=== PATIENT | male | born 1930 | race Caucasian/White ===

== ENCOUNTER 2016-09-28 09:29 | Emergency (ER) | payer MEDICARE, BC ==
[2016-09-28 09:47] VITALS: RESP 18
[2016-09-28] MEDS ORDERED: RX INFO: IV CONTRAST WAS GIVEN 1 EACH MISC MISCELLANE PRN (10:04)
--- NOTE | 2016-09-28 10:13 | ED ---
Abdominal Pain HPI - General Chief Complaint: Abdominal Pain Stated Complaint: Abd Pain Time Seen by Provider: 09/28/16 09:38 Source: patient, family, EMS, RN notes reviewed Mode of arrival: EMS Limitations: no limitations, physical limitation - History of Present Illness Initial Comments: 86-year-old male presents emergency Department chief complaint lower abdominal pain. Patient is currently been treated for bladder cancer. Patient states she 's in between radiation and chemo. Patient had a plan 3 weeks off for treatment. Patient states that he is unable to cath himself anymore he states it feels obstructed. Patient states that he feels that he needs go the bathroom. Patient also had an increase abdominal pain prior to this. Patient has fever, chills. Patient states he has not had any recent imaging performed. Patient denies any rectal bleeding or rectal pain. Denies any melena or hematochezia. He does have some constipation. Patient denies chest pain, shortness breath. - Related Data Home Medications Medication Instructions Recorded Confirmed Ascorbic Acid [Vitamin C] 500 mg PO DAILY 03/17/16 09/28/16 Cranberry Extract [Cranberry] 500 mg PO DAILY 03/17/16 09/28/16 Cholecalciferol [Vitamin D3] 1,000 unit PO DAILY 09/28/16 09/28/16 Losartan Potassium [Cozaar] 100 mg PO DAILY 09/28/16 09/28/16 traMADol HCl [Ultram] 50 mg PO BID PRN 09/28/16 09/28/16 Previous Rx's Medication Instructions Recorded Ciprofloxacin HCl [Cipro] 500 mg PO Q12HR #20 tablet 09/28/16 Allergies Allergy/AdvReac Type Severity Reaction Status Date / Time No Known Allergies Allergy Verified 09/28/16 10:50 Review of Systems ROS Statement: Those systems with pertinent positive or pertinent negative responses have been documented in the HPI. ROS Other: All systems not noted in ROS Statement are negative. Past Medical History Past Medical History: Cancer, Hypertension History of Any Multi-Drug Resistant Organisms: None Reported Past Surgical History: Hernia Repair Additional Past Surgical History / Comment(s): ABD SX RE BLADDER Past Psychological History: No Psychological Hx Reported Smoking Status: Never smoker Past Alcohol Use History: None Reported Past Drug Use History: None Reported General Exam Limitations: physical limitation General appearance: alert, in no apparent distress Head exam: Present: atraumatic, normocephalic, normal inspection Respiratory exam: Present: normal lung sounds bilaterally. Absent: respiratory distress, wheezes, rales, rhonchi, stridor Cardiovascular Exam: Present: regular rate, normal rhythm, normal heart sounds. Absent: systolic murmur, diastolic murmur, rubs, gallop, clicks GI/Abdominal exam: Present: soft, distended, tenderness (Moderate lower abdominal tenderness), normal bowel sounds. Absent: guarding, rebound, rigid Back exam: Absent: CVA tenderness (R), CVA tenderness (L) Neurological exam: Present: alert Course Vital Signs 09/28/16 09:39 Temperature 98.6 F Pulse Rate 100 Respiratory 18 Rate Blood Pressure 163/83 O2 Sat by Pulse 95 Oximetry Medical Decision Making - Medical Decision Making A 6-year-old male present emergency department for lower abdominal pain urinary retention. Patient did have a Frances placed and and has complete relief of his symptoms. Patient CT shows progression of his cancer with bilateral hydronephrosis hydroureter. We did update urology Dr. Parish by Dr. Amato. Patient will be discharged home and follow up with urology. Patient's Frances will be left in placed. - Lab Data Result diagrams: 09/28/16 10:25 09/28/16 10:25 Lab Results 09/28/16 09/28/16 09/28/16 Range/Units 10:25 10:25 11:50 WBC 2.4 L (3.8-10.6) k/uL RBC 3.09 L (4.30-5.90) m/uL Hgb 9.1 L (13.0-17.5) gm/dL Hct 27.2 L (39.0-53.0) % MCV 88.3 (80.0-100.0) fL MCH 29.5 (25.0-35.0) pg MCHC 33.5 (31.0-37.0) g/dL RDW 20.5 H (11.5-15.5) % Plt Count 245 (150-450) k/uL Neutrophils % (Manual) 68.0 % Band Neutrophils % 4.0 % Lymphocytes % (Manual) 5.0 % Monocytes % (Manual) 23.0 % Neutrophils # (Manual) 1.7 (1.3-7.7) k/uL Lymphocytes # (Manual) 0.1 L (1.0-4.8) k/uL Monocytes # (Manual) 0.6 (0-1.0) k/uL Nucleated RBCs 0 (0-0) /100 WBC Manual Slide Review Performed Poikilocytosis (manual Present Anisocytosis Moderate Sodium 129 L (137-145) mmol/L Potassium 4.7 (3.5-5.1) mmol/L Chloride 95 L (98-107) mmol/L Carbon Dioxide 26 (22-30) mmol/L Anion Gap 8 mmol/L BUN 31 H (9-20) mg/dL Creatinine 1.00 (0.66-1.25) mg/dL Est GFR (MDRD) Af Amer >60 (>60 ml/min/1.73 sqM) Est GFR (MDRD) Non-Af >60 (>60 ml/min/1.73 sqM) Glucose 109 H (74-99) mg/dL Calcium 9.3 (8.4-10.2) mg/dL Total Bilirubin 0.6 (0.2-1.3) mg/dL AST 36 (17-59) U/L ALT 42 (21-72) U/L Alkaline Phosphatase 77 (38-126) U/L Total Protein 5.9 L (6.3-8.2) g/dL Albumin 3.0 L (3.5-5.0) g/dL Amylase 34 (30-110) U/L Lipase 31 (23-300) U/L Urine Color Yellow Urine Appearance Cloudy (Clear) Urine pH 6.5 (5.0-8.0) Ur Specific [place] 1.013 (1.001-1.035) Urine Protein 2+ H (Negative) Urine Glucose (UA) Negative (Negative) Urine Ketones Trace H (Negative) Urine Blood Small H (Negative) Urine Nitrite Negative (Negative) Urine Bilirubin Negative (Negative) Urine Urobilinogen <2.0 (<2.0) mg/dL Ur Leukocyte Esterase Large H (Negative) Urine RBC 18 H (0-5) /hpf Urine WBC 129 H (0-5) /hpf Urine WBC Clumps Few H (None) /hpf Urine Bacteria Occasional H (None) /hpf Disposition Clinical Impression: Urinary retention, Bladder cancer, Hydronephrosis Disposition: HOME SELF-CARE Condition: Stable Instructions: Urinary Retention in Men (ED) Additional Instructions: Please return to the Emergency Department if symptoms worsen or any other concerns. Prescriptions: Ciprofloxacin HCl [Cipro] 500 mg PO Q12HR #20 tablet Time of Disposition: 13:02
[2016-09-28 10:33] LABS: Anisocytosis Moderate; Aty Lym Flag Marked; CH 29.9; HCT 27.2 % (39.0-53.0); HDW 2.65; HGB 9.1 gm/dL (13.0-17.5); MCH 29.5 pg (25.0-35.0); MCHC 33.5 g/dL (31.0-37.0); MCV 88.3 fL (80.0-100.0); Mean Platelet Volume 7.9; RBC 3.09 m/uL (4.30-5.90); RDW 20.5 % (11.5-15.5); WBC 2.4 k/uL (3.8-10.6); WBC (Perox) 2.47
[2016-09-28] MEDS ORDERED: SODIUM CHLORIDE 0.9% 500 ML IV ONE (10:42)
[2016-09-28 10:55] LABS: ALT 42 U/L (21-72); AST 36 U/L (17-59); Alkaline Phosphatase 77 U/L (38-126); Amylase 34 U/L (30-110); Anion Gap 8 mmol/L; Blood Urea Nitrogen 31 mg/dL (9-20); Calcium 9.3 mg/dL (8.4-10.2); Carbon Dioxide 26 mmol/L (22-30); Chloride 95 mmol/L (98-107); Glucose 109 mg/dL (74-99); Non-African American GFR(MDRD) >60 (>60 ml/min/1.73 sqM); Potassium 4.7 mmol/L (3.5-5.1); Sodium 129 mmol/L (137-145); Total Bilirubin 0.6 mg/dL (0.2-1.3); Total Protein 5.9 g/dL (6.3-8.2)
[2016-09-28 11:40] LABS: Add Differential Manual Differential
[2016-09-28 11:45] LABS: Manual Review Performed; Nucleated Red Blood Cells 0 /100 WBC (0-0); Total Cells Counted 100
[2016-09-28 12:19] LABS: Appearance,Urine Cloudy (Clear); Bacteria,Urine Occasional /hpf; Bilirubin,Urine Negative (Negative); Glucose,Urine (UA) Negative (Negative); Ketones,Urine Trace (Negative); Leukocyte Esterase,Urine Large (Negative); Nitrite,Urine Negative (Negative); PH, Urine 6.5 (5.0-8.0); Particle Count 75625; Protein,Urine 2+ (Negative); RBC,Urine 18 /hpf (0-5); Specific Gravity,Urine 1.013 (1.001-1.035); UA Billing (MACRO vs. MICRO) MICRO; Urobilinogen,Urine <2.0 mg/dL (<2.0); WBC,Urine 129 /hpf (0-5)
--- NOTE | 2016-09-28 12:26 | CT ---
EXAMINATION TYPE: CT abdomen pelvis w con DATE OF EXAM: 09/28/2016 12:11 PM COMPARISON: 03/15/2016 HISTORY: Bladder CA, pain with urination CT DLP: 835.9 mGycm CONTRAST: CT scan of the abdomen and pelvis is performed without Oral Contrast and with IV Contrast, patient in jected with 100 mL of Omnipaque 300. FINDINGS: LUNG BASES-: No visible nodule. No infiltrate. Basilar parenchymal scarring. Small sliding-type hiat al hernia is again seen. LIVER/GB: No calcified gallstones. Multiple stable hepatic cysts are again noted. Borderline fatty hepatic infiltration. Biliary tree is of normal caliber. PANCREAS: No inflammation. No distinct mass. SPLEEN: No splenic enlargement. No lesion seen. ADRENALS: No nodule. No thickening. KIDNEYS/BLADDER: Marked right-sided hydronephrosis which has progressed since the prior examination. Again noted is severe renal parenchymal thinning on the right. There is also mild left-sided hydroureteronephrosis which appears to have progressed slightly as well . There is a marked thickening of the urinary bladder throughout with more loculated component seen a long the right lateral wall. Findings are compatible with bladder carcinoma. Frances catheter is in jaime ce. BOWEL: Normal appendix. Normal bowel caliber. No inflammation. Moderately severe fecal stasis. GENITAL ORGANS: No gross abnormality. LYMPH NODES: Adenopathy is again noted along the right pelvic sidewall internal iliac chain measuring 1.9 cm. AORTA: No significant abnormality. OSSEOUS STRUCTURES: No significant abnormality is seen. OTHER: No significant additional abnormality is seen. IMPRESSION: 1. Progressive marked right-sided hydroureteronephrosis secondary to tumoral mass within the urinary bladder. Also mildly progressive mild left sided hydroureteronephrosis. 2. Right internal iliac chain adenopathy. 3. Moderate fecal stasis. 4. Hepatic cysts. 5. Hiatal hernia.
[2016-09-28 13:20] VITALS: BP 143/70; PULSE 102; TEMP 98.8
== END 2016-09-28 13:14 | disposition home or self-care (01) ==
LOC: EC 09:29
DX: R33.9 Retention of urine, unspecified (principal); N13.30 Unspecified hydronephrosis; I10 Essential (primary) hypertension; Z85.51 Personal history of malignant neoplasm of bladder; Z79.899 Other long term (current) drug therapy
CPT/HCPCS: 99285; 96360; 51702; 51798; 36415; 80053; 82150; 83690; 85025; 81001; 74177; Q9967